=== PATIENT | female | born 1975 | race Caucasian/White ===

== ENCOUNTER 2018-07-27 06:57 | Day surgery (SDC) | payer BC ==
[2018-07-26 11:36] LABS: Absolute Lymphocytes (CBC) 2.3 K/uL (0.7-4.9); Absolute Monocytes 0.4 K/uL (0.1-1.3); Absolute Neutrophil 4.3 K/uL (1.8-8.0); Basophils % 0.4 % (0-1.3); Eosinophils % 0.9 % (0-4.4); Hematocrit 40.2 % (36.0-45.0); Lymphocytes % 32.1 % (15.3-44.8); Monocytes % 5.9 % (3.3-12.3); RBC Red Blood Cell Count 4.72 M/uL (3.86-4.86)
[2018-07-26 11:47] LABS: Protime INR 1.01
--- NOTE | 2018-07-26 11:50 | RAD REPORT ---
EXAM DESCRIPTION: Delgado Bauer (2 Views)07/26/2018 11:31 am CLINICAL HISTORY: Hypertension. Preop for cardiac catheterization COMPARISON: March 2017 FINDINGS: The lungs appear clear of acute infiltrate. The heart is normal size IMPRESSION: No acute abnormalities displayed
[2018-07-26 12:00] LABS: BUN Blood Urea Nitrogen 11 mg/dL (7-18); Bicarbonate 28 mmol/L (21-32); Glucose Level 82 mg/dL (74-106); Potassium 3.8 mmol/L (3.5-5.1); Sodium Level 141 mmol/L (136-145)
[2018-07-27] MEDS ORDERED: HEPA 1000U/500MLS 2,000 UNIT/1,000 ML BAG IV ONE ×2 (07:17→09:14)
[2018-07-27] MEDS ORDERED: LIDOCAINE 1% MPF 30 ML VIAL ONE (07:18)
[2018-07-27] MEDS ORDERED: NA CHLORIDE 0.9% 500 ML ONE (07:27)
[2018-07-27] MEDS ORDERED: MIDAZOLAM HCL 2 MG/2 ML INJ ONE ×2 (08:06→08:11)
[2018-07-27] MEDS ORDERED: NA CHLORIDE 0.9% 0 ML ONE (08:06)
[2018-07-27] MEDS ORDERED: FENTANYL CITR 100 MCG/2 ML ONE (08:06)
[2018-07-27] MEDS ORDERED: ATROPINE SULF 1 MG/10 ML SYR IV ONE (08:06)
[2018-07-27] MEDS ORDERED: NICARDIPINE HCL 25 MG/10 ML IV ONE (08:21)
[2018-07-27] MEDS ORDERED: HEPARIN 5000 UNIT/ML 1 ML VIAL ONE (08:21)
[2018-07-27] MEDS ORDERED: NITROGLYCERIN 100 MCG/ML SYR (for cath lab use only) IV ONE (08:21)
[2018-07-27] MEDS ORDERED: ASPIRIN 325 MG TAB PO ONE (10:00)
--- NOTE | 2018-07-27 10:18 | RAD REPORT ---
EXAM DESCRIPTION: CT - Head Brain Wo Cont - 07/27/2018 10:03 am CLINICAL HISTORY: Headache COMPARISON: 2009 TECHNIQUE: Computed axial tomography of the head was obtained. IV contrast was not requested. All CT scans are performed using dose optimization technique as appropriate and may include automated exposure control or mA/KV adjustment according to patient size. FINDINGS: An intracranial bleed is not seen . The ventricles are normal in caliber. No extra-axial fluid collection is noted. Fluid within the sinuses/ mastoids is not seen. IMPRESSION: No acute intracranial abnormality is seen. If patient's symptoms persist MRI of the bra in would be recommended.
--- NOTE | 2018-07-27 14:18 | OP ---
Surgeon: Jung Parekh MD Procedures: Left heart catheterization with coronary left ventricular angiography. Findings: The patient's coronary arteries are normal. There is no plaque, calcification, stenosis. There are completely normal, normal right dominant configuration. Left ventricular ejection fractio n is normal. Left ventricular end-diastolic pressure 4. No gradient on aortic valve pullback. It i s a normal cardiac cath. Procedure In Detail: The patient had an abnormal Cardiolite stress test indicating apical ischemia. She was brought to the cardiac labview programmer in a fasting state sedated with Versed and fentanyl. Prepar ed and draped in usual sterile fashion. Right radial approach was used. We anesthetized the skin ov er the right radial artery using 1% lidocaine, entered the artery using a 21-gauge needle, cannulated the artery with a 0.021 inch diameter guidewire, and then using modified Seldinger technique, placed a 6-Fijian Terumo radial sheath. The sheath was flushed and a radial cocktail was given consisting of nicardipine, heparin, and nitroglycerin. We guided the TIG catheter into the ascending aorta usin g fluoroscopy and a short radius J-tipped Terumo Glidewire. We were able to angiogram right coronary , left coronary, left ventricle, all with the same catheter. At the end of the procedure, the cathet er was straightened out using a J-wire and removed. The sheath was flushed. The sheath was then rem ana and the arteriotomy closed using a TR band. Estimated Blood Loss: 5 cc. Complications: None. MATEO/ALEJANDRO Voice ID: [id number] Report ID: [id number]
--- NOTE | 2018-07-27 15:33 | PN ---
Subjective: Ms. Ruelas about an hour to an hour and a half following her cardiac cath which showed normal coronary arteries developed flashing colorful lights in her visual field. It tended to go aw ay after she had a caffeinated beverage in some food. It reminded her of when she had a migraine whe n she was in her 20s or her teens. She did not develop a headache. There are no other neurological symptoms. No dysarthria or aphasia. No facial droop. No weakness in either arm or leg. She is abl e to stand, walk and talk. CAT scan of the head was normal. Impression: My impression is that the patient had a migraine aura. She may get a headache later. W e will be ready to treat this. We will give her aspirin and other pain medicines if needed. JASS Voice ID: [id number] Report ID: [id number]
== END 2018-07-27 11:15 | disposition home or self-care (01) ==
LOC: CCL 06:57
PROVIDERS: ATTEND Internal Medicine
DX: I20.8 Other forms of angina pectoris (principal); G43.109 Migraine with aura, not intractable, without status migrainosus; I10 Essential (primary) hypertension; Z79.82 Long term (current) use of aspirin; Z79.899 Other long term (current) drug therapy
CPT/HCPCS: 36415; 70450; 71046; 80048; 85025; 85610; 85730; 93458; C1893; J0583; J1644; J2250; J3010